=== PATIENT | female | born 1945 | race Caucasian/White ===

== ENCOUNTER 2018-10-24 12:00 | Day surgery (SDC) | payer MEDICARE, OTHER ==
[~2018-10-24 12:00] MED LIST: ALEN70 PO; Advil200 M1 PO; SERT50 PO; SIMPONI50 MG/0.5 SC; [UNRECOGNIZED DRUG - OTHER]
== END 2018-10-24 22:54 | disposition home or self-care (01) ==
LOC: WOUND 12:00
DX: L97.813 Non-pressure chronic ulcer of other part of right lower leg with necrosis of muscle (principal); R60.0 Localized edema; I87.2 Venous insufficiency (chronic) (peripheral); G47.33 Obstructive sleep apnea (adult) (pediatric); M06.9 Rheumatoid arthritis, unspecified
CPT/HCPCS: G0463

== ENCOUNTER 2018-10-30 08:00 | Day surgery (SDC) | payer MEDICARE, OTHER | END 2018-10-30 22:50 | disposition home or self-care (01) | LOC: WOUND 08:00 | DX: L97.913 Non-pressure chronic ulcer of unspecified part of right lower leg with necrosis of muscle (principal); R60.0 Localized edema; G47.33 Obstructive sleep apnea (adult) (pediatric); M06.9 Rheumatoid arthritis, unspecified; M85.80 Other specified disorders of bone density and structure, unspecified site ==

== ENCOUNTER 2018-11-07 14:10 | Day surgery (SDC) | payer MEDICARE, OTHER | END 2018-11-07 23:02 | disposition home or self-care (01) | LOC: WOUND 14:10 | DX: L97.913 Non-pressure chronic ulcer of unspecified part of right lower leg with necrosis of muscle (principal); R60.0 Localized edema ==

== ENCOUNTER 2018-11-14 00:30 | Day surgery (SDC) | payer MEDICARE, OTHER | END 2018-11-14 22:45 | disposition home or self-care (01) | LOC: WOUND 00:30 | DX: L97.913 Non-pressure chronic ulcer of unspecified part of right lower leg with necrosis of muscle (principal); R60.0 Localized edema ==

== ENCOUNTER → 2018-11-17 | Outpatient (CLI) | payer MEDICARE, OTHER ==
[2018-11-17 10:01] LABS: BASOPHILS ABSOLUTE AUTO 0.04 K/mm3 (0.00-0.23); BASOPHILS PERCENT AUTO 0 % (0-2); EOSINOPHILS ABSOLUTE AUTO 0.32 K/mm3 (0.00-0.68); EOSINOPHILS PERCENT AUTO 3 % (0-6); Hematocrit 34.1 % (33.0-51.0); Hemoglobin 10.2 g/dL (11.5-16.0); IMMATURE GRAN ABSOLUTE AUTO 0.04 K/mm3 (0.00-0.10); IMMATURE GRAN PERCENT AUTO 0 % (0-1); LYMPHOCYTES ABSOLUTE AUTO 2.68 K/mm3 (0.84-5.20); LYMPHOCYTES PERCENT AUTO 26 % (21-46); MONOCYTES ABSOLUTE AUTO 0.67 K/mm3 (0.16-1.47); MONOCYTES PERCENT AUTO 6 % (4-13); Mean Corpuscular HGB 23.6 pg (26.0-34.0); Mean Corpuscular HGB Conc 29.9 g/dL (31.5-36.5); Mean Corpuscular Volume 79 fL (80-100); Mean Platelet Volume 9.1 fL (9.1-12.4); NEUTROPHILS ABSOLUTE AUTO 6.65 K/mm3 (1.96-9.15); NEUTROPHILS PERCENT AUTO 64 % (41-73); NRBC ABSOLUTE 0.02 K/mm3 (0.00-0.02); NRBC Auto 0.2 /100 WBC (0.0-0.2); Platelet Count 316 K/mm3 (150-400); RDW Coefficient Variation 17.4 % (11.7-14.2); Red Blood Cell Count 4.33 M/mm3 (3.80-5.20)
[2018-11-17 10:14] LABS: Alanine Aminotransfer (ALT/SGP 18 U/L (12-78); Albumin, Blood 3.4 g/dL (3.4-5.0); Albumin/Globulin Ratio 0.9 (0.8-1.8); Alk Phos 156 U/L (40-126); Anion Gap 7 mmol/L (6-16); Aspartate Aminotrans (AST/SGOT 18 U/L (12-37); Bilirubin, Total 0.3 mg/dL (0.1-1.0); Blood Urea Nitrogen 13 mg/dL (8-24); Bun/Creatinine Ratio 18.6 (12.0-20.0); CO2, Blood 30 mmol/L (21-32); Calcium, Blood 8.5 mg/dL (8.5-10.1); Chloride, Blood 102 mmol/L (98-108); Glomerular Filtration Rate >60 (60-); Glucose, Blood 107 mg/dL (70-99); Potassium, Blood 4.1 mmol/L (3.5-5.5); Sodium, Blood 139 mmol/L (136-145); Total Protein, Blood 7.4 g/dL (6.4-8.2)
[2018-11-17 10:15] LABS: Troponin I <0.017 ng/mL (0.000-0.040)
== END ==
LOC: LAB SHORT 09:57 → LAB EV 09:57
PROVIDERS: Emergency Medicine
DX: R06.00 Dyspnea, unspecified (principal)
CPT/HCPCS: 80053; 83880; 84484; 85025; 85379

== ENCOUNTER 2018-11-21 00:18 | Day surgery (SDC) | payer MEDICARE, OTHER | END 2018-11-21 22:43 | disposition home or self-care (01) | LOC: WOUND 00:18 | DX: L97.912 Non-pressure chronic ulcer of unspecified part of right lower leg with fat layer exposed (principal); R60.0 Localized edema; G47.33 Obstructive sleep apnea (adult) (pediatric); M06.9 Rheumatoid arthritis, unspecified; M85.80 Other specified disorders of bone density and structure, unspecified site ==

== ENCOUNTER 2018-11-28 08:59 | Day surgery (SDC) | payer MEDICARE, OTHER | END 2018-11-29 13:23 | disposition home or self-care (01) | LOC: WOUND 08:59 | DX: L97.912 Non-pressure chronic ulcer of unspecified part of right lower leg with fat layer exposed (principal); R60.0 Localized edema; G47.33 Obstructive sleep apnea (adult) (pediatric); M06.9 Rheumatoid arthritis, unspecified; M85.80 Other specified disorders of bone density and structure, unspecified site ==

== ENCOUNTER 2018-12-12 00:25 | Day surgery (SDC) | payer MEDICARE, OTHER | END 2018-12-12 12:00 | disposition home or self-care (01) | LOC: WOUND | DX: L97.812 Non-pressure chronic ulcer of other part of right lower leg with fat layer exposed (principal); D64.9 Anemia, unspecified; G47.33 Obstructive sleep apnea (adult) (pediatric); I73.9 Peripheral vascular disease, unspecified; M06.9 Rheumatoid arthritis, unspecified; M19.90 Unspecified osteoarthritis, unspecified site; R60.0 Localized edema ==

== ENCOUNTER 2018-12-26 00:11 | Day surgery (SDC) | payer MEDICARE, OTHER | END 2018-12-26 23:01 | disposition home or self-care (01) | LOC: WOUND 00:11 | DX: I77.1 Stricture of artery (principal); L97.812 Non-pressure chronic ulcer of other part of right lower leg with fat layer exposed; D64.9 Anemia, unspecified; G47.33 Obstructive sleep apnea (adult) (pediatric); M19.90 Unspecified osteoarthritis, unspecified site; F32.9 Major depressive disorder, single episode, unspecified; Z79.899 Other long term (current) drug therapy | CPT/HCPCS: G0463 ==

== ENCOUNTER 2019-01-02 01:13 | Day surgery (SDC) | payer MEDICARE, OTHER | END 2019-01-02 22:47 | disposition home or self-care (01) | LOC: WOUND 01:13 | DX: I77.1 Stricture of artery (principal); L97.812 Non-pressure chronic ulcer of other part of right lower leg with fat layer exposed; I73.9 Peripheral vascular disease, unspecified; F32.9 Major depressive disorder, single episode, unspecified; D64.9 Anemia, unspecified; G47.33 Obstructive sleep apnea (adult) (pediatric); M19.90 Unspecified osteoarthritis, unspecified site ==

== ENCOUNTER 2019-01-16 13:15 | Day surgery (SDC) | payer MEDICARE, OTHER | END 2019-01-16 22:48 | disposition home or self-care (01) | LOC: WOUND 13:15 | DX: L97.912 Non-pressure chronic ulcer of unspecified part of right lower leg with fat layer exposed (principal); D64.9 Anemia, unspecified; G47.33 Obstructive sleep apnea (adult) (pediatric); F32.9 Major depressive disorder, single episode, unspecified | CPT/HCPCS: G0463 ==

== ENCOUNTER 2019-02-21 01:25 | Day surgery (SDC) | payer MEDICARE, OTHER | END 2019-02-21 22:46 | disposition home or self-care (01) | LOC: WOUND 01:25 | DX: L97.811 Non-pressure chronic ulcer of other part of right lower leg limited to breakdown of skin (principal); I73.9 Peripheral vascular disease, unspecified; D64.9 Anemia, unspecified; G47.30 Sleep apnea, unspecified ==

== ENCOUNTER 2019-03-17 11:15 | Day surgery (SDC) | payer MEDICARE, OTHER | END 2019-03-17 23:15 | disposition home or self-care (01) | LOC: WOUND 11:15 | DX: L97.913 Non-pressure chronic ulcer of unspecified part of right lower leg with necrosis of muscle (principal); M06.9 Rheumatoid arthritis, unspecified | CPT/HCPCS: G0463 ==

== ENCOUNTER 2019-04-14 11:06 | Day surgery (SDC) | payer MEDICARE, OTHER | END 2019-04-14 22:43 | disposition home or self-care (01) | LOC: WOUND 11:06 | DX: L97.811 Non-pressure chronic ulcer of other part of right lower leg limited to breakdown of skin (principal); I73.9 Peripheral vascular disease, unspecified; G47.33 Obstructive sleep apnea (adult) (pediatric); M06.9 Rheumatoid arthritis, unspecified; M85.80 Other specified disorders of bone density and structure, unspecified site; L40.9 Psoriasis, unspecified | CPT/HCPCS: G0463 ==

== ENCOUNTER 2020-02-06 00:24 | Day surgery (SDC) | payer MEDICARE, OTHER | END 2020-02-06 23:02 | disposition home or self-care (01) | LOC: WOUND 00:24 | DX: L89.302 Pressure ulcer of unspecified buttock, stage 2 (principal); I87.2 Venous insufficiency (chronic) (peripheral) | CPT/HCPCS: G0463 ==

== ENCOUNTER 2020-02-09 01:17 | Day surgery (SDC) | payer MEDICARE, OTHER | END 2020-02-09 22:47 | disposition home or self-care (01) | LOC: WOUND 01:17 | DX: L97.812 Non-pressure chronic ulcer of other part of right lower leg with fat layer exposed (principal); L89.302 Pressure ulcer of unspecified buttock, stage 2; I87.2 Venous insufficiency (chronic) (peripheral); Z79.899 Other long term (current) drug therapy ==

== ENCOUNTER 2020-02-13 00:17 | Day surgery (SDC) | payer MEDICARE, OTHER | END 2020-02-13 23:15 | disposition home or self-care (01) | LOC: WOUND 00:17 | DX: I82.431 Acute embolism and thrombosis of right popliteal vein (principal); L97.812 Non-pressure chronic ulcer of other part of right lower leg with fat layer exposed; L89.302 Pressure ulcer of unspecified buttock, stage 2; I87.2 Venous insufficiency (chronic) (peripheral); I73.9 Peripheral vascular disease, unspecified; G47.33 Obstructive sleep apnea (adult) (pediatric); F32.9 Major depressive disorder, single episode, unspecified; Z79.899 Other long term (current) drug therapy ==

== ENCOUNTER 2020-02-20 00:22 | Day surgery (SDC) | payer MEDICARE, OTHER | END 2020-02-20 23:10 | disposition home or self-care (01) | LOC: WOUND 00:22 | DX: I82.431 Acute embolism and thrombosis of right popliteal vein (principal); L97.812 Non-pressure chronic ulcer of other part of right lower leg with fat layer exposed; L89.302 Pressure ulcer of unspecified buttock, stage 2; I87.2 Venous insufficiency (chronic) (peripheral); I73.9 Peripheral vascular disease, unspecified; F32.9 Major depressive disorder, single episode, unspecified; G47.33 Obstructive sleep apnea (adult) (pediatric); Z79.899 Other long term (current) drug therapy ==

== ENCOUNTER 2020-02-27 00:26 | Day surgery (SDC) | payer MEDICARE, OTHER | END 2020-02-27 23:19 | disposition home or self-care (01) | LOC: WOUND 00:26 | DX: L97.812 Non-pressure chronic ulcer of other part of right lower leg with fat layer exposed (principal); L89.302 Pressure ulcer of unspecified buttock, stage 2; I82.431 Acute embolism and thrombosis of right popliteal vein; I87.2 Venous insufficiency (chronic) (peripheral); I73.9 Peripheral vascular disease, unspecified; G47.33 Obstructive sleep apnea (adult) (pediatric); M06.9 Rheumatoid arthritis, unspecified; F32.9 Major depressive disorder, single episode, unspecified ==

== ENCOUNTER 2020-03-05 14:00 | Day surgery (SDC) | payer MEDICARE, OTHER | END 2020-03-10 23:15 | disposition home or self-care (01) | LOC: WOUND 14:00 | DX: L97.812 Non-pressure chronic ulcer of other part of right lower leg with fat layer exposed (principal); I82.431 Acute embolism and thrombosis of right popliteal vein; I87.2 Venous insufficiency (chronic) (peripheral); I73.9 Peripheral vascular disease, unspecified; G47.33 Obstructive sleep apnea (adult) (pediatric); M06.9 Rheumatoid arthritis, unspecified; F32.9 Major depressive disorder, single episode, unspecified; Z86.718 Personal history of other venous thrombosis and embolism ==

== ENCOUNTER 2020-03-12 00:41 | Day surgery (SDC) | payer MEDICARE, OTHER | END 2020-03-12 23:46 | disposition home or self-care (01) | LOC: WOUND 00:41 | DX: L97.812 Non-pressure chronic ulcer of other part of right lower leg with fat layer exposed (principal); I82.431 Acute embolism and thrombosis of right popliteal vein; I87.2 Venous insufficiency (chronic) (peripheral); I73.9 Peripheral vascular disease, unspecified; G47.33 Obstructive sleep apnea (adult) (pediatric); M06.9 Rheumatoid arthritis, unspecified; F32.9 Major depressive disorder, single episode, unspecified | CPT/HCPCS: G0463 ==

== ENCOUNTER → 2020-12-09 | Outpatient (CLI) | payer MEDICARE, OTHER ==
[~2020-12-09] MED LIST changes: +FUROSEMIDE20 MG PO; +INSULANPEN SC; +KLOR-CON 1010 ME1 PO; +LEVFLO500 PO; +SIMPONI AR50 MG/4 M1 SC; +XARELTO20 M1 PO; +ZOLOFT100 M4 PO
== END | disposition home or self-care (01) ==
LOC: LAB 13:32 → LAB SHORT 13:32
DX: I83.009 Varicose veins of unspecified lower extremity with ulcer of unspecified site (principal)
CPT/HCPCS: 87070; 87075; 87077; 87147; 87186; 87205

== ENCOUNTER 2020-12-14 00:38 | Day surgery (SDC) | payer MEDICARE, OTHER ==
[~2020-12-14 00:38] MED LIST changes: -FUROSEMIDE20 MG PO; -INSULANPEN SC; -KLOR-CON 1010 ME1 PO; -LEVFLO500 PO; -SIMPONI AR50 MG/4 M1 SC; -XARELTO20 M1 PO; -ZOLOFT100 M4 PO
== END 2020-12-14 22:46 | disposition home or self-care (01) ==
LOC: WOUND 00:38
DX: I87.2 Venous insufficiency (chronic) (peripheral) (principal); I73.9 Peripheral vascular disease, unspecified; L97.812 Non-pressure chronic ulcer of other part of right lower leg with fat layer exposed; L97.822 Non-pressure chronic ulcer of other part of left lower leg with fat layer exposed
CPT/HCPCS: A9270; G0463

== ENCOUNTER 2020-12-22 00:20 | Day surgery (SDC) | payer MEDICARE, OTHER | END 2020-12-22 22:40 | disposition home or self-care (01) | LOC: WOUND 00:20 | DX: L97.812 Non-pressure chronic ulcer of other part of right lower leg with fat layer exposed (principal); L97.822 Non-pressure chronic ulcer of other part of left lower leg with fat layer exposed; I87.2 Venous insufficiency (chronic) (peripheral); G47.33 Obstructive sleep apnea (adult) (pediatric); M06.9 Rheumatoid arthritis, unspecified; M85.80 Other specified disorders of bone density and structure, unspecified site; M79.2 Neuralgia and neuritis, unspecified; L40.50 Arthropathic psoriasis, unspecified; L57.0 Actinic keratosis; I73.9 Peripheral vascular disease, unspecified; Z86.718 Personal history of other venous thrombosis and embolism | CPT/HCPCS: 93922; A9270; G0463 ==

== ENCOUNTER 2020-12-29 11:35 | Inpatient (IN) | payer MEDICARE, OTHER ==
[~2020-12-29] VITALS: Ht 152.4 cm; Wt 74.0 kg
[2020-12-29 13:20] LABS: Hematocrit 49.5 % (33.0-51.0); Hemoglobin 15.5 g/dL (11.5-16.0); Mean Corpuscular HGB 25.5 pg (26.0-34.0); Mean Corpuscular HGB Conc 31.3 g/dL (31.5-36.5); Mean Corpuscular Volume 82 fL (80-100); Mean Platelet Volume 9.8 fL (9.1-12.4); NRBC ABSOLUTE 0.04 K/mm3 (0.00-0.02); NRBC Auto 0.2 /100 WBC (0.0-0.2); Platelet Count 211 K/mm3 (150-400); RDW Coefficient Variation 27.3 % (11.7-14.2); RDW Standard Deviation 77.1 fL (35.1-46.3); Red Blood Cell Count 6.07 M/mm3 (3.80-5.20); White Blood Cell Count 20.23 K/mm3 (4.00-11.30)
[2020-12-29 13:21] LABS: Troponin I <0.015 ng/mL (0.000-0.040)
[2020-12-29 13:32] LABS: Alanine Aminotransfer (ALT/SGP 37 U/L (12-78); Albumin, Blood 0.1 g/dL (3.4-5.0); Alk Phos 174 U/L (50-136); Anion Gap 4 mmol/L (6-16); Aspartate Aminotrans (AST/SGOT 11 U/L (12-37); Bilirubin, Total 0.7 mg/dL (0.1-1.0); Blood Urea Nitrogen 46 mg/dL (8-24); Bun/Creatinine Ratio 56.4 (12.0-20.0); CO2, Blood 31 mmol/L (21-32); Calcium, Blood 10.5 mg/dL (8.5-10.1); Chloride, Blood 100 mmol/L (98-108); Creatinine, Blood 0.82 mg/dL (0.40-1.00); Globulin, Blood 7.7 g/dL (2.2-4.0); Glomerular Filtration Rate >60 (60-); Glucose, Blood 215 mg/dL (70-99); Potassium, Blood 4.4 mmol/L (3.5-5.5); Sodium, Blood 135 mmol/L (136-145); Total Protein, Blood 7.8 g/dL (6.4-8.2)
[2020-12-29 14:00] LABS: BAND PERCENT MAN 3 % (0-8); BASOPHILS PERCENT MAN 0 % (0-2); EOSINOPHILS PERCENT MAN 0 % (0-6); LYMPHOCYTES PERCENT MAN 4 % (21-46); MONOCYTES PERCENT MAN 1 % (4-13); NEUTROPHILS ABSOLUTE MAN 19.21 K/mm3 (1.96-9.15); SEG NEUTROPHILS PERCENT MAN 92 % (41-73); TOTAL CELLS COUNTED 100
[2020-12-29] MEDS ORDERED: KLOR-CON 1010 ME1 PO (16:23)
[2020-12-29] MEDS ORDERED: XARELTO20 M1 PO (16:23)
[2020-12-29] MEDS ORDERED: ZOLOFT100 M4 PO (16:23)
[2020-12-29] MEDS ORDERED: FUROSEMIDE20 MG PO (16:24)
[2020-12-29] MEDS ORDERED: SIMPONI AR50 MG/4 M1 SC (16:24)
[2020-12-29 20:24] LABS: Influenza A, PCR NEGATIVE (NEGATIVE); Influenza B, PCR NEGATIVE (NEGATIVE); Resp Syncytial Virus, PCR NEGATIVE (NEGATIVE); SARS-Cov-2 (COVID-19) PCR, MMC NEGATIVE (NEGATIVE)
[2020-12-30 03:26] LABS: Source, Urine Clean Catch
[2020-12-30 03:29] LABS: Appearance, Urine Clear (Clear); Bilirubin, Urine Neg (Neg); Blood, Urine 1+ (Neg); Color, Urine Amber (P-Yellow); Glucose Qualitative, Urine Neg (Neg); Ketones, Urine Neg (Neg); Leukocyte Esterase, Urine 1+ (Neg); Nitrite, Urine Neg (Neg); Protein, Urine 2+ (Neg); Urobilinogen, Urine NORM (Normal)
[2020-12-30 03:34] LABS: Bacteria Many /hpf; Red Blood Cells, Urine 0-2 /hpf (0-2); Squamous Epithelial Cells Few /hpf (Few)
--- NOTE | 2020-12-30 04:27 | NUR ---
TYLER IZABEL ASSUMED CARE OF PT AT 1900. PT IS A/OX4. HEART SOUDNS REGULAR. LUNG SOUNDS HAVE CRACKLES AT THE BASES, ASKED [facility] FOR LASIX BUT DENIED THEM DUE TO CREATININE OF 1.26, SAID TO HAVE BD PROTOCOL INSTEAD. RT AGREED WITH THIS NURSE THAT LASIX WOULD BE A BETTER OPTION THAN ALBUTERAL. REPEAT CXR ALSO ORDERED FOR CHANGE IN CONDITION. ABD IS DISTENDED BUT PT STATES THIS IS NORMAL. PT HAS CASTELAN DUE TO WOUNDS ON LEGS AND BUTTOCK, URINE SMELLY AND DARK, UA SENT TO BE CULTURED. PT HAS A PRESSURE ULCER ON HER R BUTTOCK, MEPILEX IN PLACE. PT HAS RED DOTS T/O BODY, STATES POSSIBLY DUE TO AUTOIMMUNE DRUG. PT LEGS ARE WEEPING CLEAR FLUIDS, THE RIGHT LEG IS MORE SWOLLEN AND DRAINING CONSTANTLY. VARIES ULCERATIONS ON LEGS, PICTURES IN CHART. PT IS VERY TIRED AND HAS ASLEPT T/O THE NIGHT. BED BATH GIVEN. CALL LIGHT IN REACH, BED IN LOWEST POSITION.
[2020-12-30 05:09] LABS: BASOPHILS ABSOLUTE AUTO 0.05 K/mm3 (0.00-0.23); BASOPHILS PERCENT AUTO 0 % (0-2); EOSINOPHILS ABSOLUTE AUTO 0.03 K/mm3 (0.00-0.68); EOSINOPHILS PERCENT AUTO 0 % (0-6); Hematocrit 44.1 % (33.0-51.0); Hemoglobin 13.4 g/dL (11.5-16.0); IMMATURE GRAN PERCENT AUTO 1 % (0-1); LYMPHOCYTES ABSOLUTE AUTO 0.34 K/mm3 (0.84-5.20); LYMPHOCYTES PERCENT AUTO 2 % (21-46); MONOCYTES ABSOLUTE AUTO 0.39 K/mm3 (0.16-1.47); MONOCYTES PERCENT AUTO 3 % (4-13); Mean Corpuscular HGB 25.6 pg (26.0-34.0); Mean Corpuscular HGB Conc 30.4 g/dL (31.5-36.5); Mean Corpuscular Volume 84 fL (80-100); Mean Platelet Volume 9.5 fL (9.1-12.4); NEUTROPHILS ABSOLUTE AUTO 13.86 K/mm3 (1.96-9.15); NEUTROPHILS PERCENT AUTO 93 % (41-73); NRBC ABSOLUTE 0.02 K/mm3 (0.00-0.02); NRBC Auto 0.1 /100 WBC (0.0-0.2); Platelet Count 216 K/mm3 (150-400); RDW Coefficient Variation 27.1 % (11.7-14.2); RDW Standard Deviation 79.5 fL (35.1-46.3); Red Blood Cell Count 5.24 M/mm3 (3.80-5.20); White Blood Cell Count 14.87 K/mm3 (4.00-11.30)
[2020-12-30 05:41] LABS: Alanine Aminotransfer (ALT/SGP 29 U/L (12-78); Albumin, Blood 1.9 g/dL (3.4-5.0); Albumin/Globulin Ratio 0.4 (0.8-1.8); Alk Phos 141 U/L (50-136); Anion Gap 4 mmol/L (6-16); Aspartate Aminotrans (AST/SGOT 7 U/L (12-37); Bilirubin, Total 0.6 mg/dL (0.1-1.0); Blood Urea Nitrogen 37 mg/dL (8-24); Bun/Creatinine Ratio 54.3 (12.0-20.0); CO2, Blood 31 mmol/L (21-32); Calcium, Blood 10.7 mg/dL (8.5-10.1); Chloride, Blood 105 mmol/L (98-108); Creatinine, Blood 0.68 mg/dL (0.40-1.00); Globulin, Blood 4.6 g/dL (2.2-4.0); Glomerular Filtration Rate >60 (60-); Glucose, Blood 149 mg/dL (70-99); Potassium, Blood 4.1 mmol/L (3.5-5.5); Sodium, Blood 140 mmol/L (136-145); Total Protein, Blood 6.5 g/dL (6.4-8.2)
--- NOTE | 2020-12-30 09:02 | NUR ---
ECHOCRADIOGRAM COMPLETE
--- NOTE | 2020-12-30 17:22 | NUR ---
ADMIT: 12/29/20 DISCHARGE: DX: Sepsis due to Cellulitis CC: cpeabody JOSE CALL: Met with Miky, , RESIDENCE: Home CAREGIVER: Miky Mora, Spouse / Partner, Heidi Morris, Child, Leela Easton, Child, DX: DVT, Anemia, KELLY, peripheral edema, see list DME: wound supplies, compression stockings, T.E.D stocking, wheelchair- Power Chair. CCM: none HOME HEALTH: [facility] PT OT wound care SUMMARY: Admit: 12/29/20 12/30/[address] Blandon, on today, trying to titrate down for discharge. dieresis today, possible new dx of chf, uncontrolled DM. Will be sent home on Metformin. May benefit from CHF and diabetes education through [facility]. Already in place with PT OT Wound care. I will notify Summer at [facility] for additional services needed.. Met with Miky, very pleasant, agreed to additional home health services.if ordered by Patient very sleepy today. ETA discharge, couple days. cp 1: Acute hypoxemic respiratory failure
--- NOTE | 2020-12-30 17:32 | NUR ---
SHIFT SUMMARY PT AxOx4 WITH EXCESSIVE DROWSINESS T/O THE DAY. PT WAKES FOR SHORT PERIODS OF TIME AND WILL COMMUNICATE VERBALLY, BUT REPORTS FEELING WEAK AND TIRED. PT DENIES ANY PAIN. BLOOD CULTURES CAME BACK POSITIVE FOR GRAM NEG BACILLI. DR BOATENG NOTIFIED VIA PHONE. NASAL SWAB SENT TO LAB TO R/O MRSA. ECHO DONE TODAY. PT IN ROOM, UPDATED ON PLAN OF CARE. SIGNIFICANT PITTING AND WEEPING EDEMA TO BLE. IV LASIX STARTED TODAY. 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 LEGS CURRENTLY OPEN TO AIR WITH ABSORBENT PAD UNDER. PADS CHANGED x2 TODAY. PT WC BOUND AT BASELINE. PT DECLINED OFFER TO GET OUT OF BED TODAY. PT HAD LOW APPETITE. CASTELAN CATHETER IN PLACE AND DRAINING TO GRAVITY. CASTELAN ORDERED FOR STRICT I&0 AND SACRAL/SAROJ SKIN BREAKDOWN. PT USING 1-4L O2 VIA NC. SOME DESATS NOTED ON 1L THIS AFTERNOON. PT ON RA AT BASELINE. CURRENT PLAN IS TO CONT IV ABX AND WEAN OFF O2. PT CURRENTLY RESTING IN BED WITH CALL LIGHT IN REACH. DENIES ANY NEEDS AT THIS TIME.
--- NOTE | 2020-12-31 04:23 | NUR ---
SHIFT SUMMARY ASSUMED CARE OF PT AT 1900. PT IS A/OX4 BUT VERY LETHARGIC. PT HAS SPIRTS OF WAKE TIMES BUT IS THEN VERY SLEEPY. HEART SOUNDS REGULAR, LUNG SOUNDS ARE DIMINISHED WITH VERY FINE CRACKLES AT BASES. PT HAS A CASTELAN, DRAINING WITH GRAVITY. PT LEGS ARE VERY EDEMADOUS AND WHEEPING CLEAR YELLOW FLUIDS. PT HAS VARIES OPEN WOUNDS ALONG LEGS. PT PERIAREA IS SWOLLEN AND RED. PT HAS SMALL WOUND ON R BUTTOCK, MEPILEX IN PLACE. PT WAS TIREATED DOWN TO 1L NC. CALL LIGHT IN REACH, BED IN LOWEST POSTION.
--- NOTE | 2020-12-31 13:02 | NUR ---
ADMIT: 12/29/20 DISCHARGE: DX: Sepsis due to Cellulitis CC: cpeabody JOSE CALL: Met with Miky, , RESIDENCE: Home CAREGIVER: Miky Mora, Spouse / Partner, Heidi Morris, Child, Leela Easton, Child, DX: DVT, Anemia, KELLY, peripheral edema, see list DME: wound supplies, compression stockings, T.E.D stocking, wheelchair- Power Chair. CCM: none HOME HEALTH: [facility] PT OT wound care, add chf education and diabetes education 12/31/20 SUMMARY: Admit: 12/29/20 12/31/20 Met with Fely today, awake but not very con versive. Discussed staying for iv antibiotics, did not identify any care needs in the home. Will order education through [facility] for diabetes and chf ( new dx) Dr working on titrating down oxygen. Reviewed transition of care letter and expects call from M 24 - [address]SE [address] follow up1 week. Left jose letter hanging on white board for discharge. cp
--- NOTE | 2020-12-31 17:14 | NUR ---
SUMMARY PT RESTING QUIETLY IN BED, WAKES EASILY, HAS BEEN PLEASANT AND COOPERATIVE WITH CARE, PT TAKEN OFF O2 AND SATS DIPPED INTO THE 80S, PT PLACED BACK ON 2L NC, SPOUSE HAS BEEN IN TO VISIT, REDNESS ON LEGS MARKED PER DR MENDEZ TO MONITOR, PT DENIES ANY PAIN OR SOB, VSS, WILL CONT TO MONITOR
--- NOTE | 2020-12-31 21:55 | NUR ---
ASSUMPTION OF CARE. LIZA IS DOING BETTER. SHE IS MORE ALERT AND TALKATIVE. STILL VERY FATIQUED AND WEAK. LIKES TO SLEEP ALOT. BLE HAVE DECREASSED IN SWELLING AND REDNESS, NEW ROBEL IS BELOW THE KNEE. THE LEGS ARE PURPLE WITH WHAT LOOKS LIKE A HEMATOMA ON THE RIGHT RUIZ. WOUNDS ARE OPEN TO AIR AND DRAINING CLEAR YELLOW FLUID MODERATE AMOUNTS. NO PAIN NOTED. DENIES NUMBNESS AND TINGLING. NO NEEDS NOTED. CALL LIGHT IN REACH.
[2021-01-01 04:28] LABS: BASOPHILS ABSOLUTE AUTO 0.09 K/mm3 (0.00-0.23); BASOPHILS PERCENT AUTO 1 % (0-2); EOSINOPHILS ABSOLUTE AUTO 0.03 K/mm3 (0.00-0.68); EOSINOPHILS PERCENT AUTO 0 % (0-6); Hematocrit 43.6 % (33.0-51.0); Hemoglobin 13.3 g/dL (11.5-16.0); IMMATURE GRAN ABSOLUTE AUTO 0.46 K/mm3 (0.00-0.10); IMMATURE GRAN PERCENT AUTO 4 % (0-1); LYMPHOCYTES ABSOLUTE AUTO 0.46 K/mm3 (0.84-5.20); LYMPHOCYTES PERCENT AUTO 4 % (21-46); MONOCYTES ABSOLUTE AUTO 0.52 K/mm3 (0.16-1.47); MONOCYTES PERCENT AUTO 5 % (4-13); Mean Corpuscular HGB 25.7 pg (26.0-34.0); Mean Corpuscular HGB Conc 30.5 g/dL (31.5-36.5); Mean Corpuscular Volume 84 fL (80-100); Mean Platelet Volume 9.3 fL (9.1-12.4); NEUTROPHILS ABSOLUTE AUTO 9.54 K/mm3 (1.96-9.15); NEUTROPHILS PERCENT AUTO 86 % (41-73); Platelet Count 231 K/mm3 (150-400); RDW Coefficient Variation 26.8 % (11.7-14.2); RDW Standard Deviation 79.8 fL (35.1-46.3); Red Blood Cell Count 5.17 M/mm3 (3.80-5.20)
[2021-01-01 04:47] LABS: Albumin, Blood 1.7 g/dL (3.4-5.0); Anion Gap 1 mmol/L (6-16); Blood Urea Nitrogen 28 mg/dL (8-24); Bun/Creatinine Ratio 58.1 (12.0-20.0); CO2, Blood 36 mmol/L (21-32); Calcium, Blood 10.6 mg/dL (8.5-10.1); Chloride, Blood 104 mmol/L (98-108); Creatinine, Blood 0.48 mg/dL (0.40-1.00); Glomerular Filtration Rate >60 (60-); Glucose, Blood 170 mg/dL (70-99); Magnesium, Blood 2.3 mg/dL (1.6-2.4); Phosphorus, Blood 2.7 mg/dL (2.5-4.9); Potassium, Blood 4.2 mmol/L (3.5-5.5); Sodium, Blood 141 mmol/L (136-145)
[2021-01-01 04:54] LABS: BASOPHILS PERCENT MAN 0 % (0-2); EOSINOPHILS PERCENT MAN 0 % (0-6); LYMPHOCYTES ABSOLUTE MAN 0.77 K/mm3 (0.84-5.20); LYMPHOCYTES PERCENT MAN 7 % (21-46); MONOCYTES ABSOLUTE MAN 0.11 K/mm3 (0.16-1.47); MONOCYTES PERCENT MAN 1 % (4-13); MYELOCYTE ABSOLUTE MAN 0.11 K/mm3 (0.00-0.00); MYELOCYTE PERCENT MAN 1 % (0-0); NEUTROPHILS ABSOLUTE MAN 9.87 K/mm3 (1.96-9.15); PROMYELOCYTE ABSOLUTE MAN 0.22 K/mm3 (0.00-0.00); PROMYELOCYTE PERCENT MAN 2 % (0-0); SEG NEUTROPHILS PERCENT MAN 89 % (41-73); TOTAL CELLS COUNTED 100
--- NOTE | 2021-01-01 05:57 | NUR ---
SHIFT SUMMARY: AOX3, BEDBOUND, FATIQUED AND SLEEPING ALL THE TIME. DOES ANSWER QUESTIONS AND FOLLOWS DIRECTIONS. LUNG SOUNDS DIMINISHED IN BASES, ON 2 LITERS OF O2, TO KEEP SATS >90%. TACHYCARDIC AT TIMES, REDNESS AND SMALL OPEN WOUND ON COCCYX, DRESSING CDI. CATHETER PATENT AND DRAINING YELLOW SEDIMENT URINE. LABIA SWELLING AND REDNESS. CELLULITIS ON RLE HAS DECREASED FROM HIP DOWN TO BELOW THE KNEE, IS MARKED. THERE IS HEMATOMA NOTED ON ANTERIOR OF RUIZ, SEVERAL OPEN WOUNDS ANTERIOR AND POSTERIOR OF THE RLE ALL OPEN TO AIR AND DRAINING MODERATE AMOUNT OF SEROUS SANGUOUS FLUID. LLE ALSO HAS SEVERAL OPEN WOUNDS, RED PURPLE COLOR TONE. SWELLING DECREASED TO WHERE THERE IS WRINKLES IN THE SKIN. PATIENT ALWAYS SLEEPING, NEVER ASK FOR ANYTHING. VS WNL, AFEBRILE. CALL LIGHT IN REACH.
--- NOTE | 2021-01-01 18:25 | NUR ---
SHIFT SUMMARY- PT ALERT AND ORIENTED MORE ALERT THIS EVENING WHEN COMPARED TO THIS MORNING. PT ADIMANTLY REFUSES TO GO BACK TO BED. SHE IS IN THE RECLINER AT THIS TIME WITH THE CALL LIGHT IN REACH, CASTELAN IN PLACE PATENT AND DRAINING. IV IS SL. SPOKE TO THIS MORNING ABOUT FLUIDS PRIOR TO PT BECOMING MORE ALERT. PT WAS SEEN BY THE PHYSICAL THERAPIST TODAY. PT STATED HSE HAS BEEN UNABLE TO WALK FOR THE PAST 2 MONTHS, HER STATED SHE HAS BEEN UNABLE TO WALK FOR ABOUT 6 YEARS, SHE HAS A POWER CHAIR AT HOME. PT SPOUSE STATES HE HAS TO PERFORM HER TRANSFERS TO THE BED, CHAIR AND CAR; HE STATES HE FREQUENTLY HAS TO HELP HER TO THE FLOOR AND WHEN THAT HAPPENS HE HAS TO CALL THE NEIGHBOR TO HELP HIM GET HER UP. CALLED DISCHARGE PLANNING TO ASK ABOUT FACILITATING THE PT FAMILY TO GET SOME SORT OF LIFT FOR HER, FOR TRANSFER SAFETY. AWAITING A CALL BACK. WILL SPEAK TO ABOUT IT TOMORROW MORNING. PLAN IS FOR POSSIBLE DC EARLY TOMORROW IF CURRENT TRENDS HOLD. PT SITTING UP IN THE CHAIR, CALL LIGHT IN REACH NO S&S OF DISTRESS WILL PASS ON TO NIGHT RN IN BEDSIDE REPORT.
--- NOTE | 2021-01-02 04:53 | NUR ---
SHIFT SUMMARY ALERT, ABLE TO MAKE NEEDS KNOWN. FLAT AFFECT NOTED. NO C/O PAIN/DISCOMFORT. COOPERATIVE; HOWEVER REFUSED TO BE REPOSITIONED AND WILL NOT UTILIZE BED. BLE ELEVATED ON PILLOWS. MEPLIEX DRSG PLACED TO RLE. IV ABX INFUSED WITHOUT COMPLICATION. APPEARED TO REST MUCH OF THE NIGHT. REMAINS ON 2L O2 VIA NC, SPO2 >92%. RESPIRATIONS EVEN WITH EQUAL RISE/FALL. LS DIMINISHED AT THE BASES. NO ACUTE CHANGES NOTED OVERNIGHT. REMAINS IN CHAIR OVERNIGHT; WHEELS LOCKED. CALL LIGHT AND BELONGINGS WITHIN REACH. CONTINUE WITH CURRENT PLAN OF CARE. REPORT TO ONCOMING RN.
[2021-01-02 05:38] LABS: Albumin, Blood 1.8 g/dL (3.4-5.0); Anion Gap 1 mmol/L (6-16); Blood Urea Nitrogen 24 mg/dL (8-24); CO2, Blood 37 mmol/L (21-32); Calcium, Blood 10.6 mg/dL (8.5-10.1); Chloride, Blood 103 mmol/L (98-108); Creatinine, Blood 0.47 mg/dL (0.40-1.00); Glomerular Filtration Rate >60 (60-); Glucose, Blood 148 mg/dL (70-99); Magnesium, Blood 2.2 mg/dL (1.6-2.4); Phosphorus, Blood 2.4 mg/dL (2.5-4.9); Potassium, Blood 4.1 mmol/L (3.5-5.5); Sodium, Blood 141 mmol/L (136-145)
--- NOTE | 2021-01-02 07:23 | NUR ---
ASSUMED CARE OF PT- BEDSIDE REPORT COMPLETED WITH NIGHT RN JAMIL. PER REPORT PT CONTINUES TO REFUSE REPOSITIONING. PT UP IN THE RECLINER AND REFUSES TO GET BACK INTO BED. PT IS INCONTINENT OF STOOL AND WAS A 3 PA TO CLEAN HER FROM A BM AT SHIFT CHANGE LAST NIGHT BECAUSE SHE REFUSED TO MOVE TO THE BED TO BE CHANGED AND CLEANED. PT LEGS ARE VERY WEAK AND SHE DOES NOT STAND WELL. SPOKE TO DR MENDEZ AFTER SHIFT CHANGE ABOUT FACILITATING A LIFT OF SOME SORT FOR THE PT AT HOME. HE WILL DC THE PT HOME WITH HOME HEALTH.
[2021-01-02] MEDS ORDERED: LEVFLO500 PO (12:08)
[2021-01-02] MEDS ORDERED: INSULANPEN SC (12:08)
--- NOTE | 2021-01-02 17:33 | NUR ---
DISCHARGE NOTE- PT SPOUSE WAS GIVEN VERBAL AND WRITTEN DISCHARGE INSTRUCTIONS AND ACKNOWLEDGED UNDERSTANDING OF THEM. PT SPOUSE HAS ABLE TO VERBILIZE UNDERSTANDING. PT HOSPITAL BED, HOME O2, BSC AND EVE LIFT HAD BEEN DELIVERED TO THE PT HOME PRIOR TO PT DISCHARGE. WRITTEN DISCHARGE INSTRUCTIONS PROVIDED WELL DIABETES EDUCATION PROVIDED BY THE DIETITIAN. PT SPOUSE STATED HE WAS WILLING TO PAY OUT OF POCKET FOR WC TRANSPORT TO COME TAKE THE PT HOME FOR HIM. PT WAS TAKEN VIA [employer] TRANSPORT TO HER HOME AT THE TIME OF DISCHARGE THERE WERE NO S&S OF DISTRESS NOTED. PT WOUNDS WERE DRESSED PRIOR TO PT DISCHARGE. PT IV'S DC'D PRIOR TO DISCHARGE. PT SPOUSE CONTACTED AFTER PT DISCHARGE THE PT CELL PHONE WAS LOCATED IN THE ROOM. HE WILL RETURN TO PICK IT UP. PHONE WAS PLACED IN A BAG WITH A PT LABEL ON IT AND TAKEN TO THE ER SCREENER DESK FOR HIM TO EXPEDITION[employer]HT[employer]HICLE [employer].
--- NOTE | 2021-01-03 12:27 | NUR ---
ADMIT: 12/29/20 DISCHARGE: 01/02/21 DX: Sepsis due to Cellulitis CC: cpeabody JOSE CALL: Met with Miky, , Follow up JOSE 1 week RESIDENCE: Home with CAREGIVER: Miky Mora, Spouse / Partner, Heidi Morris, Child, Leela Easton, Child, DX: DVT, Anemia, KELLY, peripheral edema, Pulmonary Hypertension 01/02/21 DME: wound supplies, compression stockings, T.E.D stocking, wheelchair- Power Chair. CCM: none HOME HEALTH: [facility] PT OT wound care, add diabetes education 12/31/20 SUMMARY: Admit: 12/29/20 discharged over the weekend. Contacted Summer at [facility] to update on discharge and new dx of Pul hypertension. Dr Bourne notes patient needs to follow up with Pulmonary DR. DR Blandon has requested patient follow up with Marc jose DR in 1 week. Patient is expecting our call to schedule appointment. andrea
== END 2021-01-02 17:09 | disposition home health service (06) | DRG 871 ==
LOC: EDSTATUS 11:35 → ER 11:40 → WOUND 15:51 → MEDS 17:54
PROVIDERS: Emergency Medicine; Family Medicine; Internal Medicine Gastroenterology; Physician Assistant; ADMIT Family Medicine
DX: A41.52 Sepsis due to Pseudomonas (principal); J96.01 Acute respiratory failure with hypoxia; L03.115 Cellulitis of right lower limb; L97.919 Non-pressure chronic ulcer of unspecified part of right lower leg with unspecified severity; L97.929 Non-pressure chronic ulcer of unspecified part of left lower leg with unspecified severity; Z20.822 Contact with and (suspected) exposure to COVID-19; E11.65 Type 2 diabetes mellitus with hyperglycemia; I83.009 Varicose veins of unspecified lower extremity with ulcer of unspecified site; M06.9 Rheumatoid arthritis, unspecified; I27.20 Pulmonary hypertension, unspecified; F32.9 Major depressive disorder, single episode, unspecified; G47.33 Obstructive sleep apnea (adult) (pediatric); E66.9 Obesity, unspecified; M85.80 Other specified disorders of bone density and structure, unspecified site; R32 Unspecified urinary incontinence; E83.52 Hypercalcemia; D35.1 Benign neoplasm of parathyroid gland; D53.1 Other megaloblastic anemias, not elsewhere classified; Z68.31 Body mass index [BMI] 31.0-31.9, adult; Z86.718 Personal history of other venous thrombosis and embolism; Z99.3 Dependence on wheelchair; Z79.899 Other long term (current) drug therapy; Z79.01 Long term (current) use of anticoagulants; Z79.83 Long term (current) use of bisphosphonates
CPT/HCPCS: 0241U; 36415; 71045; 71046; 71260; 80053; 80069; 81001; 82397; 82947; 83605; 83735; 83880; 83970; 84484; 85025; 87040; 87077; 87081; 87086; 87186; 93005; 93010; 96361; 96365-59; 96375-59; 97161; 97530; 99285-25; A9270; C8923; G0463; J0690; J1815; J1885; J1940; J1956; J7030; J7050; Q9967